=== PATIENT | male | born 1965 | race Caucasian/White ===

== ENCOUNTER 2017-01-31 20:58 | Inpatient (IN) | payer MEDICAID ==
[~2017-01-31] VITALS: Ht 167.6 cm; Wt 86.2 kg
[2017-01-31 22:52] LABS: BASOPHILS % 0.7 % (0.0-2.0); CHLORIDE 103 mEq/L (98-107); EOSINOPHILS % 2.2 % (0.0-5.0); HEMATOCRIT. 47.1 % (42.0-52.0); HEMOGLOBIN. 16.1 g/dL (14.0-18.0); LYMPHOCYTES % 20.9 % (20.0-50.0); MEAN CORPUSCULAR VOLUME 96.1 fL (80.0-94.0); MEAN PLATELET VOLUME 9.1 fl (7.4-10.4); MONOCYTES % 10.2 % (2.0-8.0); PLATELET 193 x1000/uL (130-400); RED CELL DISTRIBUTION WIDTH 12.5 % (11.6-14.6)
[2017-01-31 22:55] LABS: PARTIAL THROMBOPLASTIN TIME 26.4 sec (23.4-31.0); PROTHROMBIN TIME 10.7 sec (9.4-11.6)
[2017-01-31 23:00] LABS: CARBON DIOXIDE 26 mEq/L (21-32)
[2017-01-31 23:03] LABS: CREATINE KINASE 168 IU/L (39-308); TROPONIN I < 0.02 ng/mL (0.00-0.04)
[2017-01-31 23:04] LABS: CREATINE KINASE MB FRACTION 2.6 ng/mL (0.5-3.6)
[2017-01-31] MEDS ORDERED: SODIUM CHLORIDE 0.9% 1,000 ML IV ONE (23:07)
[2017-01-31] MEDS ORDERED: PANTOPRAZOLE SODIUM 40 MG/VIAL IV ONE (23:15)
[2017-02-01] MEDS ORDERED: MORPHINE SULFATE 4 MG/ML CPJ (NOT FOR IM USE) IV STA (00:16)
[2017-02-01] MEDS ORDERED: ASPIRIN 81MG TABLET PO STA (00:16)
[2017-02-01] MEDS ORDERED: ONDANSETRON HCL 4MG/2ML VIAL IV STA (00:16)
[2017-02-01] MEDS ORDERED: NITROGLYCERIN OINT 1GM/INCH UDPKT TD STA (00:16)
[2017-02-01 03:15] VITALS: BP 120/77
[2017-02-01] MEDS ORDERED: PANTOPRAZOLE SODIUM 40 MG/VIAL IV SCH (04:23)
[2017-02-01] MEDS ORDERED: FAMO-134 PO ×3 (04:23→10:53)
[2017-02-01] MEDS: HYDROCODONE/ACETAMINOPHEN 10/325MG TABLET PO PRN ×2 (04:32→12:13)
[2017-02-01] MEDS ORDERED: DEXT 5%/0.45% NACL KCL 20MEQ/L 1,000 ML IV SCH (06:00)
[2017-02-01 08:01] VITALS: BP 113/60
[2017-02-01 08:27] LABS: BASOPHILS % 0.7 % (0.0-2.0); CARBON DIOXIDE 26 mEq/L (21-32); CHLORIDE 105 mEq/L (98-107); EOSINOPHILS % 2.8 % (0.0-5.0); HDL CHOLESTEROL 36 mg/dL (40-59); HEMATOCRIT. 42.9 % (42.0-52.0); HEMOGLOBIN. 14.6 g/dL (14.0-18.0); LDL CHOLESTEROL 124 mg/dL (5-100); LYMPHOCYTES % 24.2 % (20.0-50.0); MEAN CORPUSCULAR HEMOGLOBIN 32.7 pg (28.0-32.0); MEAN PLATELET VOLUME 9.1 fl (7.4-10.4); MONOCYTES % 10.3 % (2.0-8.0); PLATELET 185 x1000/uL (130-400); RED BLOOD CELL COUNT 4.47 mill/uL (4.7-6.1); RED CELL DISTRIBUTION WIDTH 12.5 % (11.6-14.6)
[2017-02-01 08:30] LABS: TROPONIN I < 0.02 ng/mL (0.00-0.04)
[2017-02-01 09:53] LABS: *AMPHETAMINES SCREEN URINE NEGATIVE (NEGATIVE); *BARBITURATES SCREEN URINE NEGATIVE (NEGATIVE); *BENZODIAZEPINES SCREEN URINE NEGATIVE (NEGATIVE); *COCAINE SCREEN URINE NEGATIVE (NEGATIVE); CANNABINOID URINE SCREEN NEGATIVE (NEGATIVE); METHADONE URINE SCREEN NEGATIVE (NEGATIVE); OPIATES URINE SCREEN PRESUMTIVE POSITIVE (NEGATIVE); PHENCYCLIDINE URINE SCREEN NEGATIVE (NEGATIVE)
[2017-02-01] MEDS ORDERED: FAMO20TA8 PO (10:56)
[2017-02-01] MEDS ORDERED: PNEUMOCOCCAL 23-VAL P-SAC VAC 0.5 ML IM ONE (12:00)
[2017-02-01] MEDS ORDERED: INFLUENZA VIRUS VACCINE 0.5ML SYR IM ONE (12:00)
[2017-02-01 12:08] VITALS: BP 104/60
[2017-02-01 12:13] VITALS: BP 104/60
[2017-02-01] MEDS ORDERED: LORAZEPAM 2MG/ML CPJ IV NR (13:00)
== END 2017-02-01 14:35 | disposition home or self-care (01) | DRG 243 ==
LOC: ER 21:06 → 8WST 02-01 00:20 → ENRESERV 02-01 02:11
PROVIDERS: ADMIT Internal Medicine; ATTEND Internal Medicine
DX: K21.9 Gastro-esophageal reflux disease without esophagitis (principal); I10 Essential (primary) hypertension; E66.9 Obesity, unspecified; R07.89 Other chest pain; J45.909 Unspecified asthma, uncomplicated; F41.9 Anxiety disorder, unspecified; Z68.30 Body mass index [BMI] 30.0-30.9, adult
CPT/HCPCS: 36415; 71010; 80053; 80061; 80305; 82550; 82553; 83690; 83880; 84484; 85025; 85610; 85730; 90686; 90732; 93005; 99285; C9113; J2060; J2270; J2405; J7030